=== PATIENT | male | born 1980 | race Caucasian/White ===

== ENCOUNTER → 2016-03-15 | Outpatient (CLI) | payer BC ==
--- NOTE | 2016-03-15 12:09 | XR ---
EXAMINATION TYPE: XR abdomen 2V DATE OF EXAM: 03/15/2016 12:05 PM COMPARISON: NONE HISTORY: Pain TECHNIQUE: Single supine KUB image of the abdomen is obtained FINDINGS: Small bowel demonstrates no evidence for dilatation or air fluid levels. Gas and fecal material is seen in non-distended colon. No convincing evidence for pneumoperitoneum. No unusual calcifications. The lung bases are clear. The osseous structures are intact. IMPRESSION: 1. Overall nonobstructive bowel gas pattern.
== END | disposition home or self-care (01) ==
LOC: RADXRMAIN 11:48
PROVIDERS: ATTEND Family Medicine
DX: Z09 Encounter for follow-up examination after completed treatment for conditions other than malignant neoplasm (principal); Z87.442 Personal history of urinary calculi
CPT/HCPCS: 74020

== ENCOUNTER → 2016-06-21 | Outpatient (CLI) | payer BC ==
[2016-06-23 14:00] LABS: Gliadin AB IgA, Deaminated 5 UNITS (<20); Gliadin AB IgG, Deaminated 4 UNITS (<20)
== END | disposition home or self-care (01) ==
LOC: LABWHC1 10:51
PROVIDERS: ATTEND Pediatrics
DX: K90.0 Celiac disease (principal)
CPT/HCPCS: 36415; 83516

== ENCOUNTER → 2019-09-02 | Outpatient (CLI) | payer BC ==
--- NOTE | 2019-09-02 09:10 | CT ---
EXAMINATION TYPE: CT urogram wo/w con DATE OF EXAM: 09/02/2019 COMPARISON: None HISTORY: Hematuria-visible. History of renal stones. CT DLP: 1954.9 mGycm, Automated Exposure Control for Dose Reduction was Utilized. CONTRAST: CT scan of the abdomen and pelvis is performed with oral and without and with IV Contrast, patient in jected with 100 mL of Isovue 300. FINDINGS: LUNG BASES: No significant abnormality is appreciated. LIVER/GB: No significant abnormality is appreciated. PANCREAS: No significant abnormality is seen. SPLEEN: No significant abnormality is seen. ADRENALS: No significant abnormality is seen. KIDNEYS: There is a 5 mm nonobstructive calculus of the right renal lower pole (4:43). There is synch ronous renal enhancement and excretion bilaterally. No evidence of hydronephrosis or hydroureter. No evidence of urothelial abnormality, stricture, or mass. Urinary bladder is partially distended with n o evidence of urothelial abnormality or mass. BOWEL: No obstruction or thickening. Mild colonic diverticulosis. No acute diverticulitis. PROSTATE/SEMINAL VESICLES: Prostate calcifications. LYMPH NODES: No lymphadenopathy. OSSEOUS STRUCTURES: No significant abnormality is seen. OTHER: Tiny fat-containing left inguinal hernia. IMPRESSION: 1. Right renal lower pole 5 mm nonobstructing calculus. 2. Otherwise negative CT urogram with no evidence of urothelial abnormality.
== END | disposition home or self-care (01) ==
LOC: RADCTMAIN 07:28
PROVIDERS: ATTEND Urology
DX: N20.0 Calculus of kidney (principal); R31.9 Hematuria, unspecified
CPT/HCPCS: 74178; 74400; Q9967

== ENCOUNTER → 2019-09-15 | Outpatient (CLI) | payer BC ==
--- NOTE | 2019-09-15 15:51 | XR ---
EXAMINATION TYPE: XR KUB DATE OF EXAM: 09/15/2019 COMPARISON: 08/13/2019 HISTORY: Renal stone TECHNIQUE: One view abdominal series FINDINGS: The osseous structures are intact. The bowel gas pattern is nonspecific. There is a 5 mm calcificati on overlying the lower pole the right kidney. No suspicious calcifications overlying the left renal o utline or pelvis. Hypertrophic change of the acetabulum be associated with femoral acetabular impinge ment. IMPRESSION: 1. Findings are compatible with a 5 mm lower pole right renal calculus.
== END | disposition home or self-care (01) ==
LOC: RAD 14:40
PROVIDERS: ATTEND Urology
DX: N20.0 Calculus of kidney (principal)
CPT/HCPCS: 74018

== ENCOUNTER 2019-09-26 06:08 | Day surgery (SDC) | payer BC ==
[2019-09-20 11:54] VITALS: BMI 26.4
--- NOTE | 2019-09-20 12:31 | P.GSHP ---
History of Present Illness H&P Date: 09/20/19 Chief Complaint: Gross hematuria The patient is a 38-year-old white male with a history of kidney stones in 2008. He has recently experienced gross hematuria following exercise. This occurs more commonly after running than weight lifting. Urine cytology was negative. A computed tomography scan showed a 5 mm right lower pole renal calculus, also seen on a plain radiograph. Cystoscopy was unremarkable. It is presumed that the renal calculus is the cause of the hematuria, and alternative treatment options were reviewed in detail. He has elected to undergo extracorporal shockwave lithotripsy (ESWL) and comes for this reason. - Constitutional Constitutional: Denies chills, Denies fever - Genitourinary (Male) Genitourinary: Reports hematuria, Denies flank pain Past Medical History Additional Past Medical History / Comment(s): KIDNEY STONES History of Any Multi-Drug Resistant Organisms: None Reported Past Surgical History: Orthopedic Surgery Additional Past Surgical History / Comment(s): ARTHROSCOPIC RIGHT KNEE,VASECTOMY Past Anesthesia/Blood Transfusion Reactions: Motion Sickness Smoking Status: Never smoker - Past Family History Mother Family Medical History: No Reported History Medications and Allergies Home Medications Medication Instructions Recorded Confirmed Type Calcium Polycarbophil [Fibercon] 1,350 mg PO DAILY 09/20/19 09/20/19 History Ibuprofen [Motrin] 400 mg PO Q6HR 09/20/19 09/20/19 History [place]-3 Fatty Acids/Fish Oil [Fish 1 each PO DAILY 09/20/19 09/20/19 History Oil 1,000 mg Softgel] Allergies Allergy/AdvReac Type Severity Reaction Status Date / Time No Known Allergies Allergy Verified 09/20/19 11:18 Surgical - Exam - General well developed, well nourished, no distress - Neck no masses, trachea midline - Respiratory normal respiratory effort - Abdomen Abdomen: soft, non tender, no guarding, no rigid, no rebound Hernia: inguinal - Genitourinary normal penis with no external lesions, testicles non-tender - Rectum Rectum: normal sphincter tone, no masses - Psychiatric oriented to time, oriented to person, oriented to place, speech is normal, memory intact Results - Imaging Abdominal x-ray: report reviewed, image reviewed CT scan - abdomen: report reviewed, image reviewed Assessment and Plan (1) Calculus of kidney Status: Acute Code(s): N20.0 - CALCULUS OF KIDNEY SNOMED Code(s): 15029729 Plan: Right ESWL. The procedure has been reviewed in detail with the patient. He is aware of potential risks, which include anesthesia, renal contusion, perinephric hematoma, treatment failure, incomplete fragmentation, and [place]. He is aware of the possible need for secondary treatments. The pros and cons of ESWL versus ureteroscopy with laser lithotripsy will reviewed in detail. ESWL will be performed by Dr. Gray.
[~2019-09-26 06:08] MED LIST: LACTATED RINGERS 1,000 ML IV SCH
--- NOTE | 2019-09-26 06:22 | XR ---
EXAMINATION TYPE: XR KUB DATE OF EXAM: 09/26/2019 COMPARISON: 09/15/2019 HISTORY: Right-sided kidney stone TECHNIQUE: Single view supine FINDINGS: There is 5 mm calcification over the lower pole right kidney. Bowel gas pattern is normal. There is no sign of intestinal obstruction or pneumoperitoneum. Fecal pattern is normal. There is no evidence of a mass. IMPRESSION: Right-sided renal calculus unchanged. Nonacute abdomen.
[2019-09-26] MEDS ORDERED: LIDOCAINE 1% (10MG/ML) FOR IV START INTRADERMA ONE (06:48)
[2019-09-26 06:51] VITALS: TEMP 97.8
[2019-09-26] MEDS ORDERED: MIDAZOLAM 2 MG/2 ML VIAL ONE (07:29)
[2019-09-26] MEDS ORDERED: PROPOFOL 10 MG/ML 20 ML VIAL IV ONE (07:29)
[2019-09-26] MEDS ORDERED: fentaNYL (PF) 50 MCG/ML 2 ML AMP ONE (07:29)
--- NOTE | 2019-09-26 08:06 | P.OP ---
Date of Procedure: 09/26/19 Preoperative Diagnosis: Right renal calculus Postoperative Diagnosis: Same Procedure(s) Performed: Extracorporeal shockwave lithotripsy, 2500 shocks at energy level IV Anesthesia: MAC Surgeon: Jose Maria Gray Estimated Blood Loss (ml): 0 Pathology: none sent Condition: stable Disposition: PACU Indications for Procedure: Patient is 38. He has a 5-6 mm symptomatic right renal calculus. He comes for shockwave lithotripsy Description of Procedure: Patient brought to the operating suite. He placed on the lithotripsy table in the supine position. Stone was seen in 2 views of fluoroscopy. IV sedation is administered. 2500 shocks at energy level IV administered. The stone fractures nicely. At the end of the procedure the patient awake and returned recovery in good condition
[2019-09-26 08:44] VITALS: BP 134/84; PULSE 57; RESP 20
== END 2019-09-26 09:27 | disposition home or self-care (01) ==
LOC: ORWHC2ENDO 06:08
PROVIDERS: ATTEND Urology
DX: N20.0 Calculus of kidney (principal); Z87.442 Personal history of urinary calculi; Z79.899 Other long term (current) drug therapy; Z98.52 Vasectomy status; Z98.890 Other specified postprocedural states
CPT/HCPCS: 74018; 50590; J2250; J3010; J2704

== ENCOUNTER → 2019-10-03 | Outpatient (CLI) | payer BC ==
--- NOTE | 2019-10-03 14:50 | XR ---
EXAMINATION TYPE: XR abdomen 1V DATE OF EXAM: 10/03/2019 10:04 AM CLINICAL HISTORY: Renal calculus. Status post lithotripsy one week ago. TECHNIQUE: Supine image of the abdomen and pelvis were obtained COMPARISON: None. FINDINGS: There is no definitive calculus overlying the right renal shadow or along the expected cour se of the ureters or urinary bladder. There is fecal debris partially obscuring the right renal shado w. The visualized bowel gas pattern is nonspecific. No organomegaly. Osseous structures are intact. IMPRESSION: 1. No definitive calculus overlies the right kidney. The right renal shadow is partially obscured du e to overlying fecal debris. 2. Nonspecific bowel gas pattern.
== END | disposition home or self-care (01) ==
LOC: RADXRMAIN 09:53
PROVIDERS: ATTEND Urology
DX: N20.0 Calculus of kidney (principal)
CPT/HCPCS: 74018

== ENCOUNTER → 2019-10-24 | Outpatient (CLI) | payer BC ==
[2019-10-24 16:45] LABS: HCT 44.1 % (39.0-53.0); HGB 14.4 gm/dL (13.0-17.5); MCHC 32.6 g/dL (31.0-37.0); MCV 92.1 fL (80.0-100.0); Mean Platelet Volume 7.5; Platelet Count 235 k/uL (150-450); RBC 4.79 m/uL (4.30-5.90); RDW 12.4 % (11.5-15.5); WBC 7.8 k/uL (3.8-10.6)
== END | disposition home or self-care (01) ==
LOC: LABWHC1 16:14
PROVIDERS: ATTEND Surgery
DX: K40.91 Unilateral inguinal hernia, without obstruction or gangrene, recurrent (principal)
CPT/HCPCS: 36415; 85027

== ENCOUNTER 2019-10-26 08:48 | Day surgery (SDC) | payer BC ==
[2019-10-21 15:51] VITALS: BMI 26.8
[~2019-10-26 08:48] MED LIST changes: +ACETAMINOPHEN TAB 500 MG TAB PO ONE; +FAMOTIDINE 20 MG/2 ML VIAL IV PRN; +HEPARIN SODIUM,PORCINE 5,000 UNIT/ML 1 ML VIAL SQ ONE; +HYDROmorphone 0.5 MG/0.5 ML SYRINGE IVP PRN; +ONDANSETRON 4 MG/2 ML VIAL IVP PRN
[2019-10-26] MEDS ORDERED: LIDOCAINE 1% (10MG/ML) FOR IV START INTRADERMA ONE (09:17)
[2019-10-26] MEDS ORDERED: ONDANSETRON 4 MG/2 ML VIAL ONE (09:22)
[2019-10-26] MEDS ORDERED: MIDAZOLAM 2 MG/2 ML VIAL IVP ONE (09:45)
[2019-10-26] MEDS ORDERED: DEXAMETHASONE SOD PHOSPHATE 10 MG/ML 1 ML VIAL IV ONE (10:00)
--- NOTE | 2019-10-26 10:11 | P.GSHP ---
History of Present Illness H&P Date: 10/26/19 Chief Complaint: Left inguinal hernia This a 38-year-old male has complaints of left we will pain. Patient was seen in the office and found have a reducible left and one hernia. He presents today for laparoscopic robotic-assisted repair. Past Medical History Additional Past Medical History / Comment(s): KIDNEY STONES History of Any Multi-Drug Resistant Organisms: None Reported Past Surgical History: Orthopedic Surgery Additional Past Surgical History / Comment(s): ARTHROSCOPIC RIGHT KNEE,VASECTOMY , KIDNEY STONE SX Past Anesthesia/Blood Transfusion Reactions: Motion Sickness Smoking Status: Never smoker - Past Family History Mother Family Medical History: No Reported History Medications and Allergies Home Medications Medication Instructions Recorded Confirmed Type Calcium Polycarbophil [Fibercon] 1,350 mg PO DAILY 09/20/19 10/26/19 History [place]-3 Fatty Acids/Fish Oil [Fish 1 each PO DAILY 09/20/19 10/21/19 History Oil 1,000 mg Softgel] Allergies Allergy/AdvReac Type Severity Reaction Status Date / Time No Known Allergies Allergy Verified 10/21/19 15:41 Surgical - Exam - General well developed, well nourished, no distress - Eyes PERRL - ENT normal pinna - Neck no masses - Respiratory normal expansion - Cardiovascular Rhythm: regular - Abdomen Abdomen: soft, non tender Hernia: inguinal (Left) Assessment and Plan Assessment: We'll hernia. We'll perform laparoscopic robotic-assisted repair.
[2019-10-26] MEDS ORDERED: DEXAMETHASONE SOD PHOSPHATE 4 MG/ML 1 ML VIAL ONE (10:16)
[2019-10-26] MEDS ORDERED: NEOSTIGMINE 1 MG/ML 10 ML VIAL ONE (10:16)
[2019-10-26] MEDS ORDERED: ROCURONIUM 10 MG/ML (5 ML VIAL) IV ONE (10:16)
[2019-10-26] MEDS ORDERED: GLYCOPYRROLATE 0.2 MG/ML 2 ML VIAL ONE (10:16)
[2019-10-26] MEDS ORDERED: PROPOFOL 10 MG/ML 20 ML VIAL IV ONE (10:16)
[2019-10-26] MEDS ORDERED: SUCCINYLCHOLINE CHLORIDE 100 MG/5 ML SYR IV ONE (10:16)
[2019-10-26] MEDS ORDERED: LIDOCAINE 1% INJ 10MG/ML (20 ML MDV) ONE (10:16)
[2019-10-26] MEDS ORDERED: fentaNYL (PF) 50 MCG/ML 2 ML AMP ONE (10:16)
[2019-10-26] MEDS ORDERED: KETOROLAC 15 MG/ML 1 ML VIAL ONE (10:16)
[2019-10-26] MEDS ORDERED: ROPIVACAINE 5 MG/ML 30 ML VIAL ONE (10:16)
[2019-10-26] MEDS ORDERED: BUPIVACAINE (PF) 0.5% 30 ML VIAL SQ ONE (10:42)
--- NOTE | 2019-10-26 11:02 | P.OP ---
Date of Procedure: 10/26/19 Preoperative Diagnosis: Left inguinal hernia Postoperative Diagnosis: Left internal hernia Procedure(s) Performed: Laparoscopic robotic system repair of left we will hernia Excision of left cord lipoma Anesthesia: CHENG Surgeon: Sriram Azul Estimated Blood Loss (ml): 5 Pathology: other (Cord lipoma) Condition: stable Disposition: PACU Description of Procedure: The patient's placed on the operating table in the supine position. The patient received general anesthesia. The patient's abdomen was prepped and draped in usual sterile fashion. The skin was anesthetized 1% local Xylocaine at the incision sites. Using an 11 blade a skin incision was made at the umbilicus. The fascia was grasped with a [place] and then the peritoneal cavity was entered with the Veress needle. Position of the Veress needle was confirmed with a positive drop test. After adequate insufflation a 5 mm trocar was placed into the peritoneal cavity. The Laparoscope was placed the peritoneal cavity. And a robotic 8 mm trocar was placed in the right lateral position and then another 8 mm robotic trochars placed in the left lateral position. The original 5 mm trocar was exchanged for a 12 mm trocar. The patient was placed in reverse Trendelenburg and then the patient was docked to the robot. Next the peritoneum over top of the hernia was incised and then using blunt and sharp dissection and electrocautery the hernia sac was dissected free from the floor of the inguinal canal. The hernia sac was completely reduced into the peritoneal cavity. The cord lipoma was excised and sent to pathology. And then using the Pro sales and catering coordinator mesh the hernia was repaired. The peritoneum was then sutured with 20V lock suture. The patient was then undocked the robot. The needle was withdrawn from the peritoneal cavity. The umbilical trocar site was closed with 0 Ethibond suture. The skin was closed interrupted 3-0 Monocryl suture. Dermabond dressing was applied. Patient was sent to recovery in stable condition.
[2019-10-26 11:18] VITALS: TEMP 97.2
[2019-10-26 12:03] VITALS: RESP 16
[2019-10-26] MEDS ORDERED: HYDROcodone/APAP 5-325MG 1 EACH TAB ONE (12:16)
[2019-10-26] MEDS ORDERED: HYDROcodone/APAP 5-325MG 1 EACH TAB PO ONE (12:18)
[2019-10-26] MEDS ORDERED: LACTATED RINGERS 1,000 ML IV ONE (12:44)
[2019-10-26 12:58] VITALS: BP 122/72; PULSE 82
--- NOTE | 2019-11-01 12:40 | P.ANPRN ---
Procedure Note - Anesthesia - Nerve Block Performed Left Transversus Abdominis Single Time Out Performed: Yes Date of Procedure: 10/26/19 Procedure Start Time: :45 Procedure Stop Time: :53 Location of Patient: PreOp Indication: Acute Post-Operative Pain, Requested by Surgeon Sedation Type: Sedate with meaningful contact maintained Preparation: Sterile Prep Position: Supine Needle Types: [place] Needle Gauge: 21 Ultrasound used to visualize needle placement: Yes Ultrasound used to observe medication spread: Yes Blood Aspirated: No Pain Paresthesia on Injection Noted: No Resistance on Injection: Normal Image Stored and Saved: Yes Events: Uneventful and Well Tolerated (ropi .5% 20cc plus dexamethasone 4mg)
== END 2019-10-26 13:16 | disposition home or self-care (01) ==
LOC: OR 08:48
PROVIDERS: ATTEND Surgery
DX: K40.90 Unilateral inguinal hernia, without obstruction or gangrene, not specified as recurrent (principal); D17.6 Benign lipomatous neoplasm of spermatic cord; Z87.442 Personal history of urinary calculi; Z98.890 Other specified postprocedural states; Z98.52 Vasectomy status; Z87.898 Personal history of other specified conditions; Z79.899 Other long term (current) drug therapy
CPT/HCPCS: 49650; S2900; 64486; 64488; 88304

== ENCOUNTER → 2019-12-26 | Outpatient (CLI) | payer BC ==
[2019-12-26 16:40] LABS: Basophils # (A) 0.1 k/uL (0-0.2); Basophils % (A) 1 %; Eosinophils # (A) 0.4 k/uL (0-0.7); Eosinophils % (A) 5 %; HCT 44.5 % (39.0-53.0); HGB 15.3 gm/dL (13.0-17.5); Lymphocytes # (A) 2.7 k/uL (1.0-4.8); Lymphocytes % (A) 33 %; MCH 31.8 pg (25.0-35.0); MCHC 34.3 g/dL (31.0-37.0); MCV 92.7 fL (80.0-100.0); Mean Platelet Volume 7.1; Monocytes # (A) 0.4 k/uL (0-1.0); Monocytes % (A) 5 %; Neutrophils # (A) 4.3 k/uL (1.3-7.7); Neutrophils % (A) 53 %; Platelet Count 240 k/uL (150-450); RDW 12.1 % (11.5-15.5); WBC 8.2 k/uL (3.8-10.6)
== END | disposition home or self-care (01) ==
LOC: LABPAT 16:29
PROVIDERS: ATTEND Surgery
DX: Z01.818 Encounter for other preprocedural examination (principal); K40.30 Unilateral inguinal hernia, with obstruction, without gangrene, not specified as recurrent
CPT/HCPCS: 85025

== ENCOUNTER 2020-01-03 08:55 | Day surgery (SDC) | payer BC ==
[2019-12-29 15:34] VITALS: BMI 26.7
[~2020-01-03 08:55] MED LIST changes: +DEXAMETHASONE SOD PHOSPHATE 4 MG/ML 1 ML VIAL IV ONE; -FAMOTIDINE 20 MG/2 ML VIAL IV PRN; +LIDOCAINE 1% (10MG/ML) FOR IV START INTRADERMA PRN; +MIDAZOLAM 2 MG/2 ML VIAL IV PRN; +ONDANSETRON 4 MG/2 ML VIAL IVP ONE; -ONDANSETRON 4 MG/2 ML VIAL IVP PRN
[2020-01-03 09:19] VITALS: TEMP 97.6
--- NOTE | 2020-01-03 09:55 | P.GSHP ---
History of Present Illness H&P Date: 01/03/20 Chief Complaint: Right inguinal hernia This 39-year-old male presents today for laparoscopic robotic-assisted repair of right inguinal hernia Past Medical History Additional Past Medical History / Comment(s): Hx kidney stones. Rt inguinal hernia. History of Any Multi-Drug Resistant Organisms: None Reported Past Surgical History: Hernia Repair, Orthopedic Surgery Additional Past Surgical History / Comment(s): ARTHROSCOPIC RIGHT KNEE,VASECTOMY , Lithotripsy KIDNEY STONE SX. Robotic Laparoscopic Lt ing hernia Past Anesthesia/Blood Transfusion Reactions: Motion Sickness Smoking Status: Never smoker - Past Family History Mother Family Medical History: No Reported History Medications and Allergies Home Medications Medication Instructions Recorded Confirmed Type Calcium Polycarbophil [Fibercon] 1,350 mg PO DAILY 09/20/19 01/03/20 History [place]-3 Fatty Acids/Fish Oil [Fish 1 each PO DAILY 09/20/19 01/03/20 History Oil 1,000 mg Softgel] Allergies Allergy/AdvReac Type Severity Reaction Status Date / Time No Known Allergies Allergy Verified 01/03/20 09:19 Surgical - Exam Vital Signs Temp Pulse Resp BP Pulse Ox 97.6 F 63 16 162/83 100 01/03/20 09:17 01/03/20 09:17 01/03/20 09:17 01/03/20 09:17 01/03/20 09:17 - General well developed, well nourished, no distress - Eyes PERRL - ENT normal pinna - Neck no masses - Respiratory normal expansion - Cardiovascular Rhythm: regular - Abdomen Right Inguinal hernia Abdomen: soft, non tender Assessment and Plan Assessment: Right inguinal hernia performed laparoscopic robotic-assisted repair.
[2020-01-03] MEDS ORDERED: NEOSTIGMINE 1 MG/ML 10 ML VIAL ONE (10:20)
[2020-01-03] MEDS ORDERED: MIDAZOLAM 2 MG/2 ML VIAL ONE (10:20)
[2020-01-03] MEDS ORDERED: fentaNYL (PF) 50 MCG/ML 2 ML AMP ONE (10:20)
[2020-01-03] MEDS ORDERED: PROPOFOL 10 MG/ML 20 ML VIAL IV ONE (10:20)
[2020-01-03] MEDS ORDERED: KETOROLAC 15 MG/ML 1 ML VIAL ONE (10:20)
[2020-01-03] MEDS ORDERED: GLYCOPYRROLATE 0.2 MG/ML 2 ML VIAL ONE (10:20)
[2020-01-03] MEDS ORDERED: ROCURONIUM 10 MG/ML (10 ML VIAL) IV ONE (10:20)
[2020-01-03] MEDS ORDERED: BUPIVACAINE (PF) 0.25% 30 ML VIAL SQ ONE (10:45)
[2020-01-03] MEDS ORDERED: LACTATED RINGERS 1,000 ML IV ONE (11:10)
--- NOTE | 2020-01-03 11:13 | P.OP ---
Date of Procedure: 01/03/20 Preoperative Diagnosis: Right inguinal hernia Postoperative Diagnosis: Right inguinal hernia Procedure(s) Performed: Laparoscopic robotic-assisted repair of right inguinal hernia Anesthesia: CHENG Surgeon: Sriram Azul Estimated Blood Loss (ml): 5 Pathology: none sent Condition: stable Disposition: PACU Description of Procedure: The patient's placed on the operating table in the supine position. The patient received general anesthesia. The patient's abdomen was prepped and draped in usual sterile fashion. The skin was anesthetized 1% local Xylocaine at the incision sites. Using an 11 blade a skin incision was made at the umbilicus. The fascia was grasped with a [place] and then the peritoneal cavity was entered with the Veress needle. Position of the Veress needle was confirmed with a positive drop test. After adequate insufflation a 5 mm trocar was placed into the peritoneal cavity. The Laparoscope was placed the peritoneal cavity. And a robotic 8 mm trocar was placed in the right lateral position and then another 8 mm robotic trochars placed in the left lateral position. The original 5 mm trocar was exchanged for a 12 mm trocar. The patient was placed in reverse Trendelenburg and then the patient was docked to the robot. Next the peritoneum over top of the hernia was incised and then using blunt and sharp dissection and electrocautery the hernia sac was dissected free from the floor of the inguinal canal. The hernia sac was completely reduced into the peritoneal cavity. And then using the Pro rate and cost analyst mesh the hernia was repaired. The peritoneum was then sutured with 20V lock suture. The patient was then undocked the robot. The needle was withdrawn from the peritoneal cavity. The umbilical trocar site was closed with 0 Ethibond suture. The skin was closed interrupted 3-0 Monocryl suture. Dermabond dressing was applied. Patient was sent to recovery in stable condition.
[2020-01-03 13:08] VITALS: BP 124/72; PULSE 82; RESP 20
== END 2020-01-03 13:21 | disposition home or self-care (01) ==
LOC: OR 08:55
PROVIDERS: ATTEND Surgery
DX: K40.90 Unilateral inguinal hernia, without obstruction or gangrene, not specified as recurrent (principal); Z87.442 Personal history of urinary calculi; Z98.890 Other specified postprocedural states; Z98.52 Vasectomy status
CPT/HCPCS: 49650; S2900